=== PATIENT | female | born 1970 | race African-American/Black ===

== ENCOUNTER 2020-03-02 12:11 | Inpatient (IN) | payer OTHER ==
--- NOTE | 2020-03-02 12:42 | BHS.RME ---
Substance Use & Tx History - Substance Use History Alcohol Substance amount: 1 case beers Frequency of use: Daily Substance route: Oral Date of Last Use: 02/26/20 Cocaine-Crack Substance amount: $100 Frequency of use: Daily Substance route: Smoking Date of Last Use: 02/26/20 Marijuana/Hashish Substance amount: $10 Frequency of use: Daily Substance route: Smoking Date of Last Use: 02/26/20 Physical/Psych/Mental Status - Behavior Eye Contact: Normal - Cooperativeness Cooperativeness: Cooperative - Thinking Thought Processes: Tight, Logical, Goal Directed - Physical Health Problems Is patient presently having any pain?: No Does patient presently have any injuries (include location): No Does patient currently have a fever: No Is patient : No CIWA Nausea/Vomitin-No Nausea/No Vomiting Muscle Tremors: None Anxiety: 0-No Anxiety, at Ease Agitation: 0-Normal Activity Paroxysmal Sweats: No Perspiration Orientation: 0-Oriented Tacttile Disturbances: 0-None Auditory Disturbances: 0-None Visual Disturbances: 0-None Headache: 0-None Present CIWA-Ar Total Score: 0
[2020-03-02 13:56] VITALS: PULSE 80
--- NOTE | 2020-03-02 14:15 | HP ---
CIWA Score Nausea/Vomitin-No Nausea/No Vomiting Muscle Tremors: None Anxiety: 0-No Anxiety, at Ease Agitation: 0-Normal Activity Paroxysmal Sweats: No Perspiration Orientation: 0-Oriented Tacttile Disturbances: 0-None Auditory Disturbances: 0-None Visual Disturbances: 0-None Headache: 0-None Present CIWA-Ar Total Score: 0 - Admission Criteria OASAS Guidelines: Admission for Medically Managed Detox: Requires at least one of the followin. CIWA greater than 12 2. Seizures within the past 24 hours 3. Delirium tremens within the past 24 hours 4. Hallucinations within the past 24 hours 5. Acute intervention needed for co occurring medical disorder 6. Acute intervention needed for co occurring psychiatric disorder 7. Severe withdrawal that cannot be handled at a lower level of care (continued vomiting, continued diarrhea, abnormal vital signs) requiring intravenous medication and/or fluids 8. Admitting History and Physical - Admission History of Present Illness: Patient is a 49 y.o. F PMHx Asthma, stroke in november, cardiac surgery on presenting to [facility] for detox. Patient substance use consists of 1 case of beers 6 40oz, crack 100$ a day. Patient is in no acute distress. 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 denies: Double Vision Respiratory: reports: Cough. denies: Shortness of Breath Cardiac: reports: Lightheadedness. denies: Chest Pain GI: denies: Constipated, Diarrhea, Nausea, Vomiting : denies: Burning, Dysuria Musculoskeletal: denies: Muscle Weakness Neuro: denies: Headache Psychiatric: reports: No Sypmtoms Reported, Judgement Intact, Mood/Affect Appropiate, Orientated x3 Patient History - Patient Medical History Hx Asthma: Yes (PUMPS) Hx Chronic Obstructive Pulmonary Disease (COPD): No Hx Cardiac Disorders: No Hx Hypertension: Yes (ON MEDS) Hx Seizures: No Hx Diabetes: No Hx Gastrointestinal Disorders: No Hx Genitourinary Disorders: No Hx Sexually Transmitted Disorders: No Hx Renal Disease (ESRD): No Hx Depression: No Hx Suicide Attempt: No Hx Schizophrenia: No - Patient Surgical History Past Surgical History: Yes Hx Neurologic Surgery: No Hx Cataract Extraction: Yes (RT EYE LIFT 2016) Hx Cardiac Surgery: Yes (STENT PLACEMENT - 2016) Hx Lung Surgery: No Hx Breast Surgery: No Hx Breast Biopsy: No Hx Abdominal Surgery: No Hx Appendectomy: No Hx Cholecystectomy: No Hx Genitourinary Surgery: No Hx Section: No Hx Orthopedic Surgery: Yes (PLATE INSERTION- ) Anesthesia Reaction: No - PPD History Previous Implant?: No Documented Results: Negative w/o proof Implanted On Prior R Admission?: No - Smoking Cessation Smoking history: Former smoker Have you smoked in the past 12 months: No Hx Chewing Tobacco Use: No Initiated information on smoking cessation: No - Substances abused Alcohol Substance route: Oral Frequency: Daily Amount used: 1 CASE BEER Age of first use: 17 Date of last use: 02/26/20 Crack Substance route: Smoking Frequency: Daily Amount used: $100 Age of first use: 17 Date of last use: 02/26/20 Marijuana/Hashish Substance route: Smoking Frequency: Daily Amount used: $10 Age of first use: 17 Date of last use: 02/26/20 Admission Physical Exam B[facility] - Vital Signs Vital Signs: Vital Signs - 24 hr 03/02/20 13:53 Temperature 98.2 F Pulse Rate 80 Respiratory 18 Rate Blood Pressure 127/84 - Physical General Appearance: Yes: Within Normal Limits, No Apparent Distress, Nourished, Appropriately Dressed Respiratory: Yes: Lungs Clear, Normal Breath Sounds, No Accessory Muscle Use Cardiology: Yes: Within Normal Limits, Regular Rhythm, Regular Rate Abdominal: Yes: Within Normal Limits, Normal Bowel Sounds, Non Tender, Flat, Soft Extremities: Yes: Within Normal Limits, Normal Inspection, Non-Tender Neurological: Yes: Within Normal Limits, Fully Oriented, Alert, Normal Response Cleared for Admission S - Detox or Rehab [facility] Level of Care: Medically Managed Detox Regimen/Protocol: Not Applicable Claeared for Rehab Admission: Yes Breathalyzer - Breathalyzer Breathalyzer: 0 Vital Signs - Vital Signs Temperature: 98.2 F Pulse Rate: 80 Respiratory Rate: 18 Blood Pressure: 127/84 - Height Height: 1.68 m - Weight Weight: 252 kg - BMI Body Mass Index (BMI): 89.6 Urine Drug Screen - Test Device Lot number: [id number] Expiration date: 01/30/22 - Control Is test valid?: Yes - Results Drug screen NEGATIVE: No Urine drug screen results: THC-Marijuana, DAYA-Cocaine, BZO-Benzodiazepines Inpatient Rehab Admission - Rehab Decision to Admit Inpatient rehab admission?: Yes - Initial Determination Are CD services needed?: No Free of communicable disease: Yes Not in need of hospitalization: Yes - Rehab Admission Criteria Previous failed treatment: No Poor recovery environment: Yes Comorbidities: Yes Lacks judgement: No Patient is meeting Inpatient Rehab admission criteria:: Yes
[2020-03-02 14:25] VITALS: BMI 89.6
[2020-03-02] MEDS ORDERED: MAGNESIUM CITRATE 300 ML BOTTLE PO PRN (14:26)
[2020-03-02] MEDS ORDERED: LOPERAMIDE HCL 2 MG CAPSULE PO PRN (14:26)
[2020-03-02] MEDS ORDERED: ACETAMINOPHEN 325 MG TABLET (FP) PO PRN (14:26)
[2020-03-02] MEDS ORDERED: guaiFENesin 200 MG/10 ML 10 ML UNIT-DOSE CUPS PO PRN (14:26)
[2020-03-02] MEDS ORDERED: MAGNESIUM HYDROX 2400MG/30ML ORAL SUSPENSION 30 ML CUP PO PRN (14:26)
[2020-03-02] MEDS ORDERED: P-EPHED 60MG/TRIPROLIDI 2.5MG TABLET PO PRN (14:26)
[2020-03-02] MEDS ORDERED: IBUPROFEN 400 MG TABLET (FP) PO PRN (14:26)
[2020-03-02] MEDS ORDERED: MAG HYDROX/AL HYDROX/SIMETH 30 ML UNIT-DOSE CUP PO PRN (14:26)
[2020-03-02] MEDS ORDERED: NICOTINE POLACRILEX 2 MG GUM BC PRN (14:26)
[2020-03-02] MEDS ORDERED: APIXABAN 5 MG TABLET PO SCH (15:15)
[2020-03-02 15:49] VITALS: BP 131/90; TEMP 97.3
[2020-03-02 15:50] LABS: HEMATOCRIT 41.8 % (32.4-45.2); HEMOGLOBIN 13.5 GM/dL (10.7-15.3); MCH 28.2 pg (25.7-33.7); MCHC 32.2 g/dl (32.0-36.0); MEAN CELL VOLUME 87.5 fl (80-96); PLATELET COUNT 110 K/MM3 (134-434); RBC 4.78 M/mm3 (3.60-5.2); RDW 15.9 % (11.6-15.6); WHITE BLOOD COUNT 7.4 K/mm3 (4.0-10.0)
[2020-03-02 16:02] LABS: ALBUMIN 3.4 g/dl (3.4-5.0); BILIRUBIN,TOTAL 0.9 mg/dL (0.2-1); BLOOD UREA NITROGEN 20.7 mg/dL (7-18); CALCIUM 8.7 mg/dL (8.5-10.1); CREATININE 1.4 mg/dL (0.55-1.3); POTASSIUM 4.3 mmol/L (3.5-5.1)
[2020-03-02 17:08] LABS: SICKLE CELL SCREEN NEGATIVE (NEGATIVE)
[2020-03-02] MEDS ORDERED: hydrOXYzine PAMOATE 25 MG CAPSULE (FP) PO SCH (18:00)
[2020-03-02] MEDS ORDERED: METHOCARBAMOL 500 MG TABLET PO SCH (18:00)
[2020-03-02] MEDS ORDERED: ATORVASTATIN CA 80 MG TABLET (FP) PO SCH (22:00)
[2020-03-02] MEDS ORDERED: THIAMINE HCL 100 MG TABLET (FP) PO SCH (22:00)
[2020-03-02] MEDS ORDERED: MELATONIN 5 MG TABLETS PO SCH (22:00)
--- NOTE | 2020-03-03 08:43 | PN ---
Teaching Attending Note Name of Resident: Klaus Lopez ATTENDING PHYSICIAN STATEMENT I saw and evaluated the patient. I reviewed the resident's note and discussed the case with the resident. I agree with the resident's findings and plan as documented. SUBJECTIVE: OBJECTIVE: ASSESSMENT AND PLAN: Agree with resident's findings and plan for rehab.
[2020-03-03] MEDS ORDERED: PRENATAL VITAMINS W/ FOLIC ACID TABLET (FP) PO SCH (10:00)
[2020-03-03] MEDS ORDERED: FOLIC ACID 1 MG TABLET (FP) PO SCH (10:00)
[2020-03-03] MEDS ORDERED: NICOTINE 7 MG/24 HOURS TOPICAL PATCH TD SCH (10:00)
--- NOTE | 2020-03-03 15:00 | EKG ---
Test Reason : Blood Pressure : / mmHG Vent. Rate : 079 BPM Atrial Rate : 079 BPM P-R Int : 202 ms QRS Dur : 072 ms QT Int : 402 ms P-R-T Axes : 065 057 060 degrees QTc Int : 460 ms NORMAL SINUS RHYTHM POSSIBLE LEFT ATRIAL ENLARGEMENT BORDERLINE ECG NO PREVIOUS ECGS AVAILABLE Confirmed by Krzysztof Gandara ([id number]) on 03/03/2020 3:00:22 PM Referred By: Confirmed By:Krzysztof Gandara
== END 2020-03-02 16:10 | disposition left against medical advice (07) | DRG 770 ==
LOC: YASAS 12:11 → Y3E 14:10
PROVIDERS: ADMIT Allergy & Immunology; ATTEND Allergy & Immunology
PROC: HZ42ZZZ Group Counseling for Substance Abuse Treatment, Cognitive-Behavioral (ICD-10-PCS; principal; 2020-03-02)
DX: F10.20 Alcohol dependence, uncomplicated (principal); F14.20 Cocaine dependence, uncomplicated; F12.20 Cannabis dependence, uncomplicated; F17.211 Nicotine dependence, cigarettes, in remission; I25.10 Atherosclerotic heart disease of native coronary artery without angina pectoris; I10 Essential (primary) hypertension; Z95.1 Presence of aortocoronary bypass graft; Z95.5 Presence of coronary angioplasty implant and graft; J45.909 Unspecified asthma, uncomplicated; Z86.73 Personal history of transient ischemic attack (TIA), and cerebral infarction without residual deficits; E66.01 Morbid (severe) obesity due to excess calories; Z68.41 Body mass index [BMI] 40.0-44.9, adult; Z79.01 Long term (current) use of anticoagulants; Z88.0 Allergy status to penicillin; Z91.018 Allergy to other foods
CPT/HCPCS: 36415; 80053; 81025; 85027; 85660; 86780; 93005; 93010

== ENCOUNTER 2020-03-08 14:05 | Inpatient (IN) | payer OTHER ==
--- NOTE | 2020-03-08 14:48 | BHS.RME ---
Substance Use & Tx History - Substance Use History Alcohol Substance amount: 1 pint vodka Frequency of use: Daily Substance route: Oral Date of Last Use: 03/06/20 Cocaine-Crack Substance amount: $200 Frequency of use: Daily Substance route: Smoking Date of Last Use: 03/06/20 Marijuana/Hashish Substance amount: 1 joint marijuana Frequency of use: Less than 3 times per week Substance route: Smoking Date of Last Use: 03/06/20 Physical/Psych/Mental Status - Behavior General Behavior: Increased activity (restlessness, agitation) Eye Contact: Normal - Cooperativeness Cooperativeness: Cooperative - Thinking Thought Processes: Tight, Logical, Goal Directed - Physical Health Problems Is patient presently having any pain?: No Does patient presently have any injuries (include location): No Does patient currently have a fever: No Is patient : No CIWA Nausea/Vomitin-No Nausea/No Vomiting Muscle Tremors: None Anxiety: 0-No Anxiety, at Ease Agitation: 0-Normal Activity Paroxysmal Sweats: No Perspiration Orientation: 0-Oriented Tacttile Disturbances: 0-None Auditory Disturbances: 0-None Visual Disturbances: 0-None Headache: 0-None Present CIWA-Ar Total Score: 0
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
[2020-03-08] MEDS ORDERED: MAGNESIUM CITRATE 300 ML BOTTLE PO PRN (15:16)
[2020-03-08] MEDS ORDERED: MAG HYDROX/AL HYDROX/SIMETH 30 ML UNIT-DOSE CUP PO PRN (15:16)
[2020-03-08] MEDS ORDERED: MAGNESIUM HYDROX 2400MG/30ML ORAL SUSPENSION 30 ML CUP PO PRN (15:16)
[2020-03-08] MEDS ORDERED: LOPERAMIDE HCL 2 MG CAPSULE PO PRN (15:16)
[2020-03-08] MEDS ORDERED: guaiFENesin 200 MG/10 ML 10 ML UNIT-DOSE CUPS PO PRN (15:16)
[2020-03-08] MEDS ORDERED: IBUPROFEN 400 MG TABLET (FP) PO PRN (15:16)
[2020-03-08] MEDS ORDERED: NICOTINE POLACRILEX 2 MG GUM BC PRN (15:16)
[2020-03-08] MEDS ORDERED: P-EPHED 60MG/TRIPROLIDI 2.5MG TABLET PO PRN (15:16)
[2020-03-08] MEDS ORDERED: ACETAMINOPHEN 325 MG TABLET (FP) PO PRN (15:16)
[2020-03-08 15:55] VITALS: BMI 40.3
[2020-03-08] MEDS ORDERED: TUBERCULIN PPD 5 TU/0.1ML VIAL ID ONE ×2 (17:08→23:16)
[2020-03-08 17:51] LABS: HEMATOCRIT 39.6 % (32.4-45.2); HEMOGLOBIN 12.9 GM/dL (10.7-15.3); MCH 28.7 pg (25.7-33.7); MCHC 32.5 g/dl (32.0-36.0); MEAN CELL VOLUME 88.3 fl (80-96); MEAN PLT VOLUME 9.7 fl (7.5-11.1); PLATELET COUNT 94 K/MM3 (134-434); RBC 4.49 M/mm3 (3.60-5.2); WHITE BLOOD COUNT 7.2 K/mm3 (4.0-10.0)
[2020-03-08] MEDS: NICOTINE 7 MG/24 HOURS TOPICAL PATCH TD SCH (17:51)
[2020-03-08] MEDS: PRENATAL VITAMINS W/ FOLIC ACID TABLET (FP) PO SCH (17:51)
[2020-03-08] MEDS: APIXABAN 5 MG TABLET PO SCH ×2 (17:51→21:13)
[2020-03-08] MEDS: hydrOXYzine PAMOATE 25 MG CAPSULE (FP) PO SCH ×2 (17:56→21:13)
[2020-03-08] MEDS: ALBUTEROL SO4 HFA INHALER IH PRN (17:56)
[2020-03-08] MEDS: METHOCARBAMOL 500 MG TABLET PO SCH ×2 (17:57→21:13)
[2020-03-08 18:05] LABS: ALBUMIN 3.4 g/dl (3.4-5.0); BILIRUBIN,TOTAL 0.3 mg/dL (0.2-1); BLOOD UREA NITROGEN 12.1 mg/dL (7-18); CREATININE 1.2 mg/dL (0.55-1.3); POTASSIUM 3.9 mmol/L (3.5-5.1); TOT PROT 7.7 g/dl (6.4-8.2)
[2020-03-08 18:06] LABS: CALCIUM 8.5 mg/dL (8.5-10.1)
[2020-03-08 18:16] LABS: SICKLE CELL SCREEN NEGATIVE (NEGATIVE)
[2020-03-08] MEDS: THIAMINE HCL 100 MG TABLET (FP) PO SCH (21:13)
[2020-03-08] MEDS: ATORVASTATIN CA 80 MG TABLET (FP) PO SCH (21:14)
[2020-03-08] MEDS: MELATONIN 5 MG TABLETS PO SCH (21:15)
[2020-03-09] MEDS: hydrOXYzine PAMOATE 25 MG CAPSULE (FP) PO SCH ×5 (06:48→22:46)
[2020-03-09] MEDS: METHOCARBAMOL 500 MG TABLET PO SCH ×4 (09:33→22:46)
[2020-03-09] MEDS: PRENATAL VITAMINS W/ FOLIC ACID TABLET (FP) PO SCH (09:33)
[2020-03-09] MEDS: APIXABAN 5 MG TABLET PO SCH ×2 (09:33→22:46)
[2020-03-09] MEDS: NICOTINE 7 MG/24 HOURS TOPICAL PATCH TD SCH (09:36)
[2020-03-09 14:52] LABS: PH,URINE 6.5 (5.0-8.0); URINE APPEARANCE CLEAR; URINE BILIRUBIN NEGATIVE (NEGATIVE); URINE COLOR YELLOW; URINE GLUCOSE (UA) NEGATIVE (NEGATIVE); URINE KETONE NEGATIVE (NEGATIVE); URINE LEUK ESTERASE NEGATIVE (NEGATIVE); URINE NITRITE NEGATIVE (NEGATIVE); URINE PROTEIN NEGATIVE (NEGATIVE); URINE UROBILINOGEN 0.2 mg/dL (0.2-1.0)
--- NOTE | 2020-03-09 18:06 | PN ---
ANYA Progress Note Note: Patient is complaining of chest pain, nausea, tiredness, dizziness and numbness of the right side. She is status post open heart surgery in 2016 and reports that she had a stroke in November 2019. Patient is being transferred to emergency room for further evaluation. Endorsed to Dr. Freitas Vital Signs Temperature 97.3 F L 03/09/20 17:47 Pulse Rate 80 03/09/20 17:47 Respiratory Rate 18 03/09/20 17:47 Blood Pressure 127/84 03/09/20 17:47 O2 Sat by Pulse Oximetry (%) 100 03/09/20 17:47 Laboratory Last Values WBC 7.2 K/mm3 (4.0-10.0) 03/08/20 14:30 RBC 4.49 M/mm3 (3.60-5.2) 03/08/20 14:30 Hgb 12.9 GM/dL (10.7-15.3) 03/08/20 14:30 Hct 39.6 % (32.4-45.2) 03/08/20 14:30 MCV 88.3 fl (80-96) 03/08/20 14:30 MCH 28.7 pg (25.7-33.7) 03/08/20 14:30 MCHC 32.5 g/dl (32.0-36.0) 03/08/20 14:30 RDW 16.0 % (11.6-15.6) H 03/08/20 14:30 Plt Count 94 K/MM3 (134-434) L 03/08/20 14:30 MPV 9.7 fl (7.5-11.1) 03/08/20 14:30 Sickle Cell Screen Negative (NEGATIVE) 03/08/20 14:30 Sodium 145 mmol/L (136-145) 03/08/20 15:30 Potassium 3.9 mmol/L (3.5-5.1) 03/08/20 15:30 Chloride 109 mmol/L (98-107) H 03/08/20 15:30 Carbon Dioxide 32 mmol/L (21-32) 03/08/20 15:30 Anion Gap 3 MMOL/L (8-16) L 03/08/20 15:30 BUN 12.1 mg/dL (7-18) 03/08/20 15:30 Creatinine 1.2 mg/dL (0.55-1.3) 03/08/20 15:30 Est GFR (CKD-EPI)AfAm 60.60 03/08/20 15:30 Est GFR (CKD-EPI)NonAf 52.28 03/08/20 15:30 Random Glucose 115 mg/dL (74-106) H 03/08/20 15:30 Calcium 8.5 mg/dL (8.5-10.1) 03/08/20 15:30 Total Bilirubin 0.3 mg/dL (0.2-1) 03/08/20 15:30 AST 19 U/L (15-37) 03/08/20 15:30 ALT 21 U/L (13-61) 03/08/20 15:30 Alkaline Phosphatase 84 U/L (45-117) 03/08/20 15:30 Total Protein 7.7 g/dl (6.4-8.2) 03/08/20 15:30 Albumin 3.4 g/dl (3.4-5.0) 03/08/20 15:30 Urine Color Yellow 03/09/20 10:55 Urine Appearance Clear 03/09/20 10:55 Urine pH 6.5 (5.0-8.0) 03/09/20 10:55 Ur Specific [place] 1.011 (1.010-1.035) 03/09/20 10:55 Urine Protein Negative (NEGATIVE) 03/09/20 10:55 Urine Glucose (UA) Negative (NEGATIVE) 03/09/20 10:55 Urine Ketones Negative (NEGATIVE) 03/09/20 10:55 Urine Blood Negative (NEGATIVE) 03/09/20 10:55 Urine Nitrite Negative (NEGATIVE) 03/09/20 10:55 Urine Bilirubin Negative (NEGATIVE) 03/09/20 10:55 Urine Urobilinogen 0.2 mg/dL (0.2-1.0) 03/09/20 10:55 Ur Leukocyte Esterase Negative (NEGATIVE) 03/09/20 10:55 POC Urine HCG, Qual Negative 03/08/20 15:43 Syphilis Serology Non-reactive (NONREACTIVE) 03/08/20 15:30 HIV Ag/Ab Combo Qual Negative (NEGATIVE) 03/09/20 08:40 ACTION: EKG Stat Transfer patent to ER for evaluation
[2020-03-09] MEDS: MELATONIN 5 MG TABLETS PO SCH (22:46)
[2020-03-09] MEDS: THIAMINE HCL 100 MG TABLET (FP) PO SCH (22:46)
[2020-03-09] MEDS: ATORVASTATIN CA 80 MG TABLET (FP) PO SCH (22:46)
[2020-03-10] MEDS ORDERED: ATORVASTATIN CA 40 MG TABLET (FP) ONE ×2 (01:29→19:05)
--- NOTE | 2020-03-10 01:32 | PN ---
[facility] Progress Note Note: Patient came back from ER where she was evaluated for chest pain As per emergency room findings -labs with no abnormal findings; trop neg -EKG with NSR, QTc prolongation 465, no acute ST or T wave changes from previous EKG -CXR with no obvious acute cardiopulmonary pathology Vital Signs Temperature 97.7 F 03/10/20 07:00 Pulse Rate 79 03/10/20 07:00 Respiratory Rate 19 03/10/20 07:00 Blood Pressure 147/89 03/10/20 07:00 O2 Sat by Pulse Oximetry (%) 98 03/10/20 07:00 Laboratory Last Values WBC 7.2 K/mm3 (4.0-10.0) 03/08/20 14:30 RBC 4.49 M/mm3 (3.60-5.2) 03/08/20 14:30 Hgb 12.9 GM/dL (10.7-15.3) 03/08/20 14:30 Hct 39.6 % (32.4-45.2) 03/08/20 14:30 MCV 88.3 fl (80-96) 03/08/20 14:30 MCH 28.7 pg (25.7-33.7) 03/08/20 14:30 MCHC 32.5 g/dl (32.0-36.0) 03/08/20 14:30 RDW 16.0 % (11.6-15.6) H 03/08/20 14:30 Plt Count 94 K/MM3 (134-434) L 03/08/20 14:30 MPV 9.7 fl (7.5-11.1) 03/08/20 14:30 Sickle Cell Screen Negative (NEGATIVE) 03/08/20 14:30 Sodium 145 mmol/L (136-145) 03/08/20 15:30 Potassium 3.9 mmol/L (3.5-5.1) 03/08/20 15:30 Chloride 109 mmol/L (98-107) H 03/08/20 15:30 Carbon Dioxide 32 mmol/L (21-32) 03/08/20 15:30 Anion Gap 3 MMOL/L (8-16) L 03/08/20 15:30 BUN 12.1 mg/dL (7-18) 03/08/20 15:30 Creatinine 1.2 mg/dL (0.55-1.3) 03/08/20 15:30 Est GFR (CKD-EPI)AfAm 60.60 03/08/20 15:30 Est GFR (CKD-EPI)NonAf 52.28 03/08/20 15:30 Random Glucose 115 mg/dL (74-106) H 03/08/20 15:30 Calcium 8.5 mg/dL (8.5-10.1) 03/08/20 15:30 Total Bilirubin 0.3 mg/dL (0.2-1) 03/08/20 15:30 AST 19 U/L (15-37) 03/08/20 15:30 ALT 21 U/L (13-61) 03/08/20 15:30 Alkaline Phosphatase 84 U/L (45-117) 03/08/20 15:30 Total Protein 7.7 g/dl (6.4-8.2) 03/08/20 15:30 Albumin 3.4 g/dl (3.4-5.0) 03/08/20 15:30 Urine Color Yellow 03/09/20 10:55 Urine Appearance Clear 03/09/20 10:55 Urine pH 6.5 (5.0-8.0) 03/09/20 10:55 Ur Specific [place] 1.011 (1.010-1.035) 03/09/20 10:55 Urine Protein Negative (NEGATIVE) 03/09/20 10:55 Urine Glucose (UA) Negative (NEGATIVE) 03/09/20 10:55 Urine Ketones Negative (NEGATIVE) 03/09/20 10:55 Urine Blood Negative (NEGATIVE) 03/09/20 10:55 Urine Nitrite Negative (NEGATIVE) 03/09/20 10:55 Urine Bilirubin Negative (NEGATIVE) 03/09/20 10:55 Urine Urobilinogen 0.2 mg/dL (0.2-1.0) 03/09/20 10:55 Ur Leukocyte Esterase Negative (NEGATIVE) 03/09/20 10:55 POC Urine HCG, Qual Negative 03/08/20 15:43 Syphilis Serology Non-reactive (NONREACTIVE) 03/08/20 15:30 HIV Ag/Ab Combo Qual Negative (NEGATIVE) 03/09/20 08:40 Action: Continue detox
[2020-03-10] MEDS: hydrOXYzine PAMOATE 25 MG CAPSULE (FP) PO SCH ×6 (01:34→21:25)
[2020-03-10] MEDS: ALBUTEROL SO4 HFA INHALER IH PRN (06:59)
[2020-03-10] MEDS: METHOCARBAMOL 500 MG TABLET PO SCH ×4 (09:41→21:26)
[2020-03-10] MEDS: PRENATAL VITAMINS W/ FOLIC ACID TABLET (FP) PO SCH (09:42)
[2020-03-10] MEDS: NICOTINE 7 MG/24 HOURS TOPICAL PATCH TD SCH (09:42)
[2020-03-10] MEDS: APIXABAN 5 MG TABLET PO SCH ×2 (11:10→21:26)
--- NOTE | 2020-03-10 11:25 | PN ---
[facility] Progress Note Note: patient has history of asthma on albuterol inhaler t97.7,p78,bp 134/83,r19 pulse ox 98 requested nebulizer treatment duoneb nebulizer treatment prn q 6 hours patient felt better close monitoring
[2020-03-10] MEDS: ALBUTEROL SO4 2.5/IPRATROPIUM 0.5 INH SOL 3 ML VIAL.NEB. NEB PRN ×2 (11:32→17:39)
[2020-03-10] MEDS ORDERED: APIXABAN 5 MG TABLET PO ONE (12:20)
[2020-03-10] MEDS: THIAMINE HCL 100 MG TABLET (FP) PO SCH (21:25)
[2020-03-10] MEDS: MELATONIN 5 MG TABLETS PO SCH (21:26)
[2020-03-10] MEDS: ATORVASTATIN CA 80 MG TABLET (FP) PO SCH (21:26)
[2020-03-11] MEDS: hydrOXYzine PAMOATE 25 MG CAPSULE (FP) PO SCH ×5 (06:14→21:28)
[2020-03-11] MEDS: ALBUTEROL SO4 2.5/IPRATROPIUM 0.5 INH SOL 3 ML VIAL.NEB. NEB PRN ×3 (06:18→21:01)
[2020-03-11] MEDS: APIXABAN 5 MG TABLET PO SCH ×2 (09:40→21:27)
[2020-03-11] MEDS: PRENATAL VITAMINS W/ FOLIC ACID TABLET (FP) PO SCH (09:40)
[2020-03-11] MEDS: METHOCARBAMOL 500 MG TABLET PO SCH ×4 (09:40→21:27)
[2020-03-11] MEDS: NICOTINE 7 MG/24 HOURS TOPICAL PATCH TD SCH (09:41)
[2020-03-11] MEDS ORDERED: COLLOIDAL OATMEAL 1 BAR EACH TP PRN (12:16)
[2020-03-11] MEDS ORDERED: ATORVASTATIN CA 40 MG TABLET (FP) ONE (18:59)
[2020-03-11] MEDS ORDERED: MASKS NR ONE (20:52)
[2020-03-11] MEDS: THIAMINE HCL 100 MG TABLET (FP) PO SCH (21:27)
[2020-03-11] MEDS: MELATONIN 5 MG TABLETS PO SCH (21:27)
[2020-03-11] MEDS: ATORVASTATIN CA 80 MG TABLET (FP) PO SCH (21:27)
[2020-03-12] MEDS: hydrOXYzine PAMOATE 25 MG CAPSULE (FP) PO SCH ×5 (06:41→21:33)
[2020-03-12] MEDS: ALBUTEROL SO4 HFA INHALER IH PRN ×2 (06:41→19:20)
[2020-03-12] MEDS ORDERED: PT OWN MED DRAWER 7, Y5N ONE ×2 (08:54→17:45)
[2020-03-12] MEDS: APIXABAN 5 MG TABLET PO SCH ×2 (09:42→21:32)
[2020-03-12] MEDS: METHOCARBAMOL 500 MG TABLET PO SCH ×4 (09:42→21:33)
[2020-03-12] MEDS: PRENATAL VITAMINS W/ FOLIC ACID TABLET (FP) PO SCH (09:42)
[2020-03-12] MEDS: NICOTINE 7 MG/24 HOURS TOPICAL PATCH TD SCH (09:42)
[2020-03-12] MEDS ORDERED: ATORVASTATIN CA 40 MG TABLET (FP) ONE (19:28)
[2020-03-12] MEDS: THIAMINE HCL 100 MG TABLET (FP) PO SCH (21:32)
[2020-03-12] MEDS: ATORVASTATIN CA 80 MG TABLET (FP) PO SCH (21:33)
[2020-03-12] MEDS: MELATONIN 5 MG TABLETS PO SCH (21:33)
[2020-03-13] MEDS: hydrOXYzine PAMOATE 25 MG CAPSULE (FP) PO SCH ×5 (07:29→21:36)
[2020-03-13] MEDS ORDERED: PT OWN MED DRAWER 7, Y5N ONE (09:21)
--- NOTE | 2020-03-13 09:29 | EKG ---
Test Reason : Blood Pressure : / mmHG Vent. Rate : 071 BPM Atrial Rate : 071 BPM P-R Int : 208 ms QRS Dur : 074 ms QT Int : 432 ms P-R-T Axes : 060 050 067 degrees QTc Int : 469 ms NORMAL SINUS RHYTHM POSSIBLE LEFT ATRIAL ENLARGEMENT NONSPECIFIC T WAVE ABNORMALITY PROLONGED QT ABNORMAL ECG WHEN COMPARED WITH ECG OF 02-MAR-2020 14:09, T WAVE INVERSION NOW EVIDENT IN ANTERIOR LEADS Confirmed by MD ROCIO, ZACHARIAH ([id number]) on 03/13/2020 9:29:10 AM Referred By: Confirmed By:ZACHARIAH CHAN MD
[2020-03-13] MEDS: PRENATAL VITAMINS W/ FOLIC ACID TABLET (FP) PO SCH (10:14)
[2020-03-13] MEDS: METHOCARBAMOL 500 MG TABLET PO SCH ×4 (10:14→21:37)
[2020-03-13] MEDS: APIXABAN 5 MG TABLET PO SCH ×2 (10:14→21:37)
[2020-03-13] MEDS: NICOTINE 7 MG/24 HOURS TOPICAL PATCH TD SCH (10:14)
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
[2020-03-13] MEDS: THIAMINE HCL 100 MG TABLET (FP) PO SCH (21:36)
[2020-03-13] MEDS ORDERED: ATORVASTATIN CA 40 MG TABLET (FP) ONE (21:36)
[2020-03-13] MEDS: MELATONIN 5 MG TABLETS PO SCH (21:37)
[2020-03-14] MEDS: ATORVASTATIN CA 80 MG TABLET (FP) PO SCH ×2 (00:11→21:20)
[2020-03-14] MEDS: hydrOXYzine PAMOATE 25 MG CAPSULE (FP) PO SCH ×5 (06:04→21:19)
[2020-03-14] MEDS ORDERED: PT OWN MED DRAWER 7, Y5N ONE (09:00)
[2020-03-14] MEDS: APIXABAN 5 MG TABLET PO SCH ×2 (10:10→21:19)
[2020-03-14] MEDS: PRENATAL VITAMINS W/ FOLIC ACID TABLET (FP) PO SCH (10:10)
[2020-03-14] MEDS: METHOCARBAMOL 500 MG TABLET PO SCH ×4 (10:10→21:18)
[2020-03-14] MEDS: NICOTINE 7 MG/24 HOURS TOPICAL PATCH TD SCH (10:10)
[2020-03-14] MEDS ORDERED: ALBUTEROL SO4 2.5/IPRATROPIUM 0.5 INH SOL 3 ML VIAL.NEB. NEB PRN (14:35)
[2020-03-14] MEDS: MINERAL OIL/PETROLAT/WATER TOPICAL CREAM 113 GM JAR TP SCH (15:54)
[2020-03-14] MEDS ORDERED: ATORVASTATIN CA 40 MG TABLET (FP) ONE (19:17)
[2020-03-14] MEDS: THIAMINE HCL 100 MG TABLET (FP) PO SCH (21:18)
[2020-03-14] MEDS: MELATONIN 5 MG TABLETS PO SCH (21:19)
[2020-03-15] MEDS: hydrOXYzine PAMOATE 25 MG CAPSULE (FP) PO SCH ×2 (06:25→09:01)
[2020-03-15 06:47] VITALS: TEMP 96.9
--- NOTE | 2020-03-15 08:55 | DS ---
[facility] Rehab Discharge Summary - [facility] Rehab Discharge Summary Admission Date: 03/08/20 Discharge Date: 03/15/20 - History Present History: Alcohol dependence, Cocaine dependence Pertinent Past History: HTN HLD CABG(Stent x 2) Stroke in 11/2019(on Eliquis Right Eye sx-eye lift Walker as an ambulatory AID - Discharge Physical Exam Vital Signs: Vital Signs Temperature 96.9 F L 03/15/20 06:24 Pulse Rate 103 H 03/15/20 06:24 Respiratory Rate 20 03/15/20 06:24 Blood Pressure 127/83 03/15/20 06:24 O2 Sat by Pulse Oximetry (%) 99 03/15/20 06:24 alert o x 3 nad oob ambulating with walker cardiac:s1 s2,rrr lungs:ctab extremities;Active FROM , all limbs, no edema Skin:intact Pertinent Admission Physical Exam Findings: Laboratory Tests 03/08/20 03/08/20 03/08/20 14:30 15:30 15:30 WBC 7.2 RBC 4.49 Hgb 12.9 Hct 39.6 MCV 88.3 MCH 28.7 MCHC 32.5 RDW 16.0 H Plt Count 94 L MPV 9.7 Sickle Cell Screen Negative Sodium 145 Potassium 3.9 Chloride 109 H Carbon Dioxide 32 Anion Gap 3 L BUN 12.1 Creatinine 1.2 Est GFR (CKD-EPI)AfAm 60.60 Est GFR (CKD-EPI)NonAf 52.28 Random Glucose 115 H Calcium 8.5 Total Bilirubin 0.3 AST 19 ALT 21 Alkaline Phosphatase 84 Total Protein 7.7 Albumin 3.4 Urine Color Urine Appearance Urine pH Ur Specific [place] Urine Protein Urine Glucose (UA) Urine Ketones Urine Blood Urine Nitrite Urine Bilirubin Urine Urobilinogen Ur Leukocyte Esterase POC Urine HCG, Qual Syphilis Serology Non-reactive HIV Ag/Ab Combo Qual 03/08/20 03/09/20 03/09/20 15:43 08:40 10:55 WBC RBC Hgb Hct MCV MCH MCHC RDW Plt Count MPV Sickle Cell Screen Sodium Potassium Chloride Carbon Dioxide Anion Gap BUN Creatinine Est GFR (CKD-EPI)AfAm Est GFR (CKD-EPI)NonAf Random Glucose Calcium Total Bilirubin AST ALT Alkaline Phosphatase Total Protein Albumin Urine Color Yellow Urine Appearance Clear Urine pH 6.5 Ur Specific [place] 1.011 Urine Protein Negative Urine Glucose (UA) Negative Urine Ketones Negative Urine Blood Negative Urine Nitrite Negative Urine Bilirubin Negative Urine Urobilinogen 0.2 Ur Leukocyte Esterase Negative POC Urine HCG, Qual Negative Syphilis Serology HIV Ag/Ab Combo Qual Negative - Treatment Discharge Condition: Discharge condition good, Rehabilitated safely, Responded well, Outpatient referral accepted - Medication Discharge Medications: Ambulatory Orders Albuterol Sulfate Inhaler - [Ventolin HFA Inhaler -] 2 inh PO QID PRN 03/02/20 Apixaban [Eliquis -] 5 mg PO Q12H 03/02/20 Atorvastatin Calcium 80 mg PO HS 03/02/20 Diltiazem HCl [Diltiazem 24Hr ER] 120 mg PO DAILY 03/02/20 Folic Acid - 1 mg PO DAILY 03/02/20 Methocarbamol [Robaxin -] 500 mg PO QID 03/02/20 - Medication-Assisted Treatment (MAT) Medication-Assisted Treatment (MAT): No - Discharge Instructions Diet, activity, other medical instructions: Diet:SRI/Low fat Activity: oob ad anai with walker Other medical instructions:follow up with PCP @ [facility](Does not remember her doctor's name) for medical management. - Diagnosis (1) Alcohol use disorder Status: Chronic (2) Cocaine use disorder Status: Chronic (3) Status post stroke Status: Chronic (4) Hx of CABG Status: Chronic (5) Hypertension Status: Chronic Qualifiers: Hypertension type: essential hypertension Qualified Code(s): I10 - Essential (primary) hypertension (6) Hyperlipidemia Status: Chronic Qualifiers: Hyperlipidemia type: unspecified Qualified Code(s): E78.5 - Hyperlipidemia, unspecified (7) Walker as ambulation aid Status: Chronic - Follow-up Referral Minutes to complete discharge: 30 - AMA Did Patient Leave Against Medical Advice: No Additional Comments: Pt reports she has own medications and has no need for courtesy Rx today.
[2020-03-15] MEDS: MINERAL OIL/PETROLAT/WATER TOPICAL CREAM 113 GM JAR TP SCH (09:01)
[2020-03-15] MEDS: APIXABAN 5 MG TABLET PO SCH (09:01)
[2020-03-15] MEDS: METHOCARBAMOL 500 MG TABLET PO SCH (09:01)
[2020-03-15] MEDS: PRENATAL VITAMINS W/ FOLIC ACID TABLET (FP) PO SCH (09:02)
[2020-03-15] MEDS: NICOTINE 7 MG/24 HOURS TOPICAL PATCH TD SCH (09:02)
[2020-03-15 09:37] VITALS: BP 120/77; PULSE 76
== END 2020-03-15 09:08 | disposition home or self-care (01) | DRG 774 ==
LOC: YASAS 14:05 → Y3E 15:51
PROVIDERS: ADMIT Allergy & Immunology; ATTEND Allergy & Immunology
DX: F10.20 Alcohol dependence, uncomplicated (principal); F14.20 Cocaine dependence, uncomplicated; F12.20 Cannabis dependence, uncomplicated; F17.211 Nicotine dependence, cigarettes, in remission; F19.282 Other psychoactive substance dependence with psychoactive substance-induced sleep disorder; E78.5 Hyperlipidemia, unspecified; J45.909 Unspecified asthma, uncomplicated; I25.10 Atherosclerotic heart disease of native coronary artery without angina pectoris; I10 Essential (primary) hypertension; R07.9 Chest pain, unspecified; Z95.1 Presence of aortocoronary bypass graft; Z95.5 Presence of coronary angioplasty implant and graft; Z86.73 Personal history of transient ischemic attack (TIA), and cerebral infarction without residual deficits; Z79.01 Long term (current) use of anticoagulants; Z99.89 Dependence on other enabling machines and devices; Z88.0 Allergy status to penicillin; Z91.018 Allergy to other foods
CPT/HCPCS: 36415; 80053; 81003; 81025; 85027; 85660; 86780; 87389; 93005; 93010; 94640

== ENCOUNTER 2020-03-09 19:21 | Emergency (ER) | payer OTHER ==
[2020-03-09 19:29] VITALS: TEMP 97.2; BMI 40.6
--- NOTE | 2020-03-09 21:31 | PDOC ---
Attending Attestation - Resident Resident Name: Florian Parkernikolas - ED Attending Attestation I have performed the following: I have examined & evaluated the patient, The case was reviewed & discussed with the resident, I agree w/resident's findings & plan - HPI HPI: 03/09/20 22:04 Pt comes with CP that began in the AM One is stabbing and fleeting and the other is reproducible on the left breast. 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; with right sided symptoms - Physicial Exam PE: 03/09/20 22:06 Agree with resident exam - Medical Decision Making 03/10/20 00:18 Labs normal; exam normal; CXR normal Pt is ready to go back to [facility] Heart Score/ECG Review - ECG Intrepretation Rhythm: Regular Rhythm - Lutz Lutz: Normal - P and IN Delta Wave(s) Present: No WPW: No - QRS Q Wave Present: No - ST and T Early Repolarization: No Non Specific ST-T Wave changes: No Flattened T Waves: No Prolonged Q-T Interval: Yes - ECG Impressions Normal ECG: Yes Non-specific ST Elevation: No Ischemic Changes: No Bradycardia: No Torsades thais Pointes: No Discharge - Discharge Information Problems reviewed: Yes Clinical Impression/Diagnosis: Chest pain Condition: Improved Disposition: HOME - Follow up/Referral - Patient Discharge Instructions Patient Printed Discharge Instructions: DI for Atypical Chest Pain, DI for Chest Pain Additional Instructions: You were seen in the ED for complaints of chest pain. In the ED you were evaluated with lab tests, EKG and CXR. Your results were not significant for any abnormal findings. You were found to have some wheezing and were given nebulizer treatment. There does not appear to be an acute need for immediate hospitalization. You are advised to follow up with your Primary Care Physician within 1 week. Return to the ED immediately if you are experience worsening chest pain, shortness of breath, radiation of pain to L arm or neck, and any other concerning symptoms. - Post Discharge Activity
[2020-03-09] MEDS ORDERED: ASPIRIN 81 MG CHEWABLE TABLETS PO ONE (21:36)
[2020-03-09] MEDS ORDERED: ASPIRIN 81 MG CHEWABLE TABLETS ONE (21:38)
[2020-03-09 21:43] LABS: BASO % 1.2 % (0-2.0); HEMOGLOBIN 13.4 GM/dL (10.7-15.3); LYMPH % 49.4 % (8-40); MCH 28.9 pg (25.7-33.7); MCHC 32.7 g/dl (32.0-36.0); MEAN CELL VOLUME 88.3 fl (80-96); MEAN PLT VOLUME 9.7 fl (7.5-11.1); MONO % 9.1 % (3.8-10.2); NEUT % 35.3 % (42.8-82.8); PLATELET COUNT 103 K/MM3 (134-434); RBC 4.64 M/mm3 (3.60-5.2); RDW 15.6 % (11.6-15.6)
[2020-03-09 21:51] LABS: INR 1.07 (0.83-1.09); PROTHROMBIN TIME (PATIENT) 12.6 SEC (9.7-13.0)
--- NOTE | 2020-03-09 21:54 | PDOC ---
History of Present Illness - General Chief Complaint: Chest Pain Stated Complaint: CHEST PAIN Time Seen by Provider: 03/09/20 21:31 - History of Present Illness Initial Comments: HPI 49 yo F with PMH of HTN, HLD, asthma, polysubstance abuse (crack cocaine, marijuana, and alcohol), CABG (2 stents) in 2018, and CVA (November 2019) presenting from her detox facility after experiencing chest pain since this morning. Pt can be a poor historian at times. Pt reports she is experiencing two types of chest pain. Since this morning she has been having moderate to severe, sharp, chest pain reproducible to touch that is located under her L breast; reports worse when palpating the area or laying on her L side; pain is not present while l aying still. Pt also with mild intermittent stabbing chest pain also occurring this morning but pt also has this pain intermittently when smoking crack cocaine or when anxious. Associated nausea, fatigue, loss of appetite, dizziness, and intermittent blurry vision. No other aggravating or alleviating factors. No associated SOB, diaphoresis, radiation of chest pain, cough, vomiting, diarrhea, constipation, or urinary changes. Pt also complains of intermittent parasthesias and residual weakness of RUE and RLE. Reports recent crack cocaine use within the last two days. PMHX: as in HPI PSHX: as in HPI Meds: see below Allergies: as per chart Tob: denies Etoh: 1 case of beers 6 40oz Rec drugs: crack 100$ a day, marijuana - pt not disclosing amount ROS GENERAL/CONSTITUTIONAL: No fever or chills. No weakness. (no longer experiencing fatigue, decreased appetite) HEAD, EYES, EARS, NOSE AND THROAT: No change in vision. No ear pain or discharge. No sore throat. CARDIOVASCULAR:No shortness of breath; + chest pain, reproducible to palpitations RESPIRATORY: No cough, wheezing, or hemoptysis. GASTROINTESTINAL: No nausea, vomiting, diarrhea or constipation. (no longer experiecing nausea) GENITOURINARY: No dysuria, frequency, or change in urination. MUSCULOSKELETAL: No joint or muscle swelling or pain. No neck or back pain. SKIN: No rash NEUROLOGIC: No headache, vertigo, loss of consciousness, or change in strength/sensation. + possible residual R sided weakness and parasthesia ENDOCRINE: No increased thirst. No abnormal weight change HEMATOLOGIC/LYMPHATIC: No anemia, easy bleeding, or history of blood clots. ALLERGIC/IMMUNOLOGIC: No hives or skin allergy. PE GENERAL: Awake, alert, and fully oriented, in no acute distress. Anxious appea ring HEAD: No signs of trauma, normocephalic, atraumatic EYES: PERRLA, EOMI, sclera anicteric, conjunctiva clear ENT: Auricles normal inspection, hearing grossly normal, nares patent, oropharynx clear without exudates. Moist mucosa NECK: Normal ROM, supple, no lymphadenopathy, JVD, or masses LUNGS: No distress, speaks full sentences, bilateral mild expiratory wheezes HEART: Regular rate and rhythm, normal S1 and S2, no murmurs, rubs or gallops, peripheral pulses normal and equal bilaterally. Tenderness to palpation under L breast. ABDOMEN: Soft, nontender, normoactive bowel sounds. No guarding, no rebound. No masses EXTREMITIES : Normal inspection, Normal range of motion, no edema. No clubbing or cyanosis. NEUROLOGICAL: Cranial nerves II through XII grossly intact. Normal speech, po ssible weakness to 4/5 strength on R UE/LE (although pt reports it is limited due to pain). sensation to light touch intact bilaterally. SKIN: Warm, Dry, normal turgor, no rashes or lesions noted 03/09/20 23:41 Past History - Medical History Allergies/Adverse Reactions: Allergies Allergy/AdvReac Type Severity Reaction Status Date / Time Penicillins Allergy Severe Swelling Verified 03/09/20 19:29 tomato Allergy Intermediate Rash Verified 03/09/20 19:29 Home Medications: Ambulatory Orders Albuterol Sulfate Inhaler - [Ventolin Hfa Inhaler -] 2 inh PO QID PRN 03/02/20 Apixaban [Eliquis -] 5 mg PO Q12H 03/02/20 Atorvastatin Calcium 80 mg PO HS 03/02/20 Diltiazem HCl [Diltiazem ER] 120 mg PO DAILY 03/02/20 Folic Acid - 1 mg PO DAILY 03/02/20 Methocarbamol [Robaxin -] 500 mg PO QID 03/02/20 Asthma: Yes Cardiac Disorders: Yes (with stent placement x2 in 2017) CVA: Yes (november) COPD: No Diabetes: No GI Disorders: No Disorders: No HTN: No Kidney Stones: No Seizures: No - Surgical History Abdominal Surgery: No Appendectomy: No Cardiac Surgery: Yes (STENT PLACEMENT - 2017) Cholecystectomy: No Lung Surgery: No Neurologic Surgery: No Orthopedic Surgery: Yes (PLATE INSERTION- 19 l ELBOW) - Reproductive History Is Patient Now?: No PID: No - Psycho-Social/Smoking History Smoking History: Current every day smoker Have you smoked in the past 12 months: No Information on smoking cessation initiated: No - Substance Abuse Hx (Audit-C & DAST Scrn) How often the patient has a drink containing alcohol: 4 0r more times/wk Score: In Men: 4 or > Positive; In Women: 3 or > Positive: 4 Screen Result (Pos requires Nsg. Audit-10AR): Positive In the last yr the pt used illegal drug/Rx for NonMed reason: Yes Score: Yes response is considered Positive: 1 Screen Result (Positive result requires Nsg. DAST-10): Positive *Physical Exam - Vital Signs Last Vital Signs Temp Pulse Resp BP Pulse Ox 97.2 F L 69 18 144/87 100 03/09/20 19:25 03/09/20 19:25 03/09/20 19:25 03/09/20 19:25 03/09/20 19:25 ED Treatment Course - LABORATORY CBC & Chemistry Diagram: 03/09/20 21:32 03/09/20 21:32 - ADDITIONAL ORDERS Additional order review: Laboratory Results 03/09/20 03/09/20 21:32 21:32 PT with INR 12.60 INR 1.07 Sodium 143 Potassium 3.8 Chloride 109 H Carbon Dioxide 30 Anion Gap 4 L BUN 16.2 Creatinine 1.1 Est GFR (CKD-EPI)AfAm 67.32 Est GFR (CKD-EPI)NonAf 58.08 Random Glucose 97 Calcium 8.2 L Total Bilirubin 0.2 AST 20 ALT 21 Alkaline Phosphatase 78 Creatine Kinase 225 H Creatine Kinase Index 0.4 CK-MB (CK-2) 1.1 Troponin I < 0.02 Total Protein 7.1 Albumin 3.1 L 03/09/20 21:32 RBC 4.64 MCV 88.3 MCHC 32.7 RDW 15.6 MPV 9.7 Neutrophils % 35.3 L Lymphocytes % 49.4 H Monocytes % 9.1 Eosinophils % 5.0 H Basophils % 1.2 - Medications Given in the ED: ED Medications Discontinued Medications Generic Name Dose Route Start Last Admin Trade Name Tramaine PRN Reason Stop Dose Admin Albuterol/Ipratropium 1 amp 03/09/20 22:06 03/09/20 22:38 Duoneb - NEB 03/09/20 22:07 1 amp ONCE ONE Administration Aspirin 324 mg 03/09/20 21:36 03/09/20 21:40 Asa - PO 03/09/20 21:37 324 mg ONCE ONE Administration Dexamethasone 10 mg 03/09/20 22:07 03/09/20 22:38 Decadron Liquid - PO 03/09/20 22:08 10 mg ONCE ONE Administration Medical Decision Making - Medical Decision Making HPI 49 yo F with PMH of HTN, HLD, asthma, CABG (2 stents) in 2018, and CVA (November 2019, on eliquis) presenting from her detox facility after experiencing chest pain since this morning; pain reproducible to palpation and associated with anxiety and smoking crack cocaine. DDX including but not limited to: musculoskeletal pain (i.e. costochondritis), anxiety, r/o ACS, r/o pulmonary pathology W/U: - CBC, CMP, trop - EKG, CXR TX: - duonebs, po decadron for pt's wheezing - ASA 03/09/20 22:04 labs with no abnormal findings; trop neg EKG with NSR, QTc prolongation 465, no acute ST or T wave changes from previous EKG CXR with no obvious acute cardiopulmonary pathology 03/09/20 23:43 Patient stable for discharge back to detox. Informed of all lab and imaging results. Given follow up instructions and strict return precautions. Patient expressed understanding and agree to plan. 03/09/20 23:52 Discharge - Discharge Information Problems reviewed: Yes Clinical Impression/Diagnosis: Chest pain Condition: Improved Disposition: HOME - Admission No - Follow up/Referral - Patient Discharge Instructions Patient Printed Discharge Instructions: DI for Atypical Chest Pain, DI for Chest Pain Additional Instructions: You were seen in the ED for complaints of chest pain. In the ED you were evaluated with lab tests, EKG and CXR. Your results were not significant for any abnormal findings. You were found to have some wheezing and were given nebulizer treatment. There does not appear to be an acute need for immediate hospitalization. You are advised to follow up with your Primary Care Physician within 1 week. Return to the ED immediately if you are experience worsening chest pain, shortness of breath, radiation of pain to L arm or neck, and any other concerning symptoms. - Post Discharge Activity
[2020-03-09] MEDS ORDERED: ALBUTEROL SO4 2.5/IPRATROPIUM 0.5 INH SOL 3 ML VIAL.NEB. NEB ONE ×2 (22:06→22:23)
[2020-03-09] MEDS ORDERED: DEXAMETHASONE LIQUID 0.5 MG/5 ML PO ONE (22:07)
[2020-03-09] MEDS ORDERED: DEXAMETHASONE SOD PHOSPHATE 10 MG/1 ML VIAL ONE (22:23)
[2020-03-09 22:29] LABS: ALBUMIN 3.1 g/dl (3.4-5.0); ALK PHOS 78 U/L (45-117); ANION GAP 4 MMOL/L (8-16); BILIRUBIN,TOTAL 0.2 mg/dL (0.2-1); BLOOD UREA NITROGEN 16.2 mg/dL (7-18); CALCIUM 8.2 mg/dL (8.5-10.1); CHLORIDE 109 mmol/L (98-107); CO2 30 mmol/L (21-32); CREATININE 1.1 mg/dL (0.55-1.3); GLUCOSE,RANDOM 97 mg/dL (74-106); POTASSIUM 3.8 mmol/L (3.5-5.1); SGOT/AST 20 U/L (15-37); SGPT/ALT 21 U/L (13-61); SODIUM 143 mmol/L (136-145); TOT PROT 7.1 g/dl (6.4-8.2)
[2020-03-10 00:04] VITALS: BP 148/80; PULSE 82
--- NOTE | 2020-03-12 11:35 | EKG ---
Test Reason : Blood Pressure : / mmHG Vent. Rate : 065 BPM Atrial Rate : 065 BPM P-R Int : 222 ms QRS Dur : 082 ms QT Int : 448 ms P-R-T Axes : 064 062 048 degrees QTc Int : 465 ms SINUS RHYTHM WITH 1ST DEGREE A-V BLOCK LEFT ATRIAL ENLARGEMENT NONSPECIFIC T WAVE ABNORMALITY PROLONGED QT ABNORMAL ECG WHEN COMPARED WITH ECG OF 02-MAR-2020 14:09, T WAVE VARIATION Confirmed by PATSY HENRIQUEZ MD ([id number]) on 03/12/2020 11:34:46 AM Referred By: Confirmed By:PATSY HENRIQUEZ MD
== END 2020-03-10 00:34 | disposition home or self-care (01) ==
LOC: JER 19:21
PROC: 3E0F7GC Introduction of Other Therapeutic Substance into Respiratory Tract, Via Natural or Artificial Opening (ICD-10-PCS; principal; 2020-03-09)
DX: R07.9 Chest pain, unspecified (principal)
CPT/HCPCS: 36415; 71046-TC-FY; 80053; 82550; 82553; 84484; 85025; 85610; 93005; 93010; 99285-25